=== PATIENT | female | born 1975 | race Caucasian/White ===

== ENCOUNTER → 2020-10-09 12:26 | Outpatient (CLI) | payer OTHER, SELFPAY ==
--- NOTE | ~2020-10-09 | MM_ITS ---
EXAMINATION: MM screening [facility] BI w viktor HISTORY: Screening TECHNIQUE: Craniocaudal and mediolateral oblique 3-D tomosynthesis images were obtained and synthetic 2-D images were generated. CAD analysis was submitted and interpreted. COMPARISON: 07/25/2019 BREAST PARENCHYMAL COMPOSITION: The breasts are heterogeneously dense, which may obscure small masses . FINDINGS: There is no evidence of suspicious mass, calcification, or architectural distortion to sugg est malignancy in either breast. There has been no suspicious interval change. IMPRESSION: 1. No mammographic evidence of malignancy. 2. Recommend routine screening mammography in one year. BI-RADS Category 1: Negative Reviewed, dictated and finalized at location D. 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
== END ==
PROVIDERS: PCP Emergency Medicine; Visit Provider Emergency Medicine
DX: Z12.31 Encounter for screening mammogram for malignant neoplasm of breast (principal)
CPT/HCPCS: 77063; 77067

== ENCOUNTER → 2021-01-18 03:29 | Outpatient (CLI) | payer OTHER, SELFPAY ==
[2021-01-18 19:46] LABS: SARS-CoV-2 RNA PCR Negative
== END ==
PROVIDERS: PCP Emergency Medicine; Visit Provider Internal Medicine Gastroenterology
DX: Z01.812 Encounter for preprocedural laboratory examination (principal); Z20.822 Contact with and (suspected) exposure to COVID-19
CPT/HCPCS: C9803; U0003; U0005

== ENCOUNTER 2021-01-22 01:18 | Day surgery (SDC) | payer OTHER, SELFPAY ==
[2021-01-08 16:13] VITALS: BMI 24.0
[2021-01-22 09:56] VITALS: BP 119/86; PULSE 110; RESP 18; TEMP 36.1; O2SAT 100
[2021-01-22] MEDS: LACTATED RINGERS 1,000 ML 150 ML IV CONT (10:13)
--- NOTE | 2021-01-22 10:36 | SUR.PREOP ---
DR MCPHERSON MADE AWARE PT'S HEARTRATE UPON ARRIVAL 110'S, HEARTRATE NOW 88. NO NEW ORDERS.
[2021-01-22 10:37] VITALS: PULSE 88
--- NOTE | 2021-01-22 10:46 | PM.HPGS ---
History of Present Illness History of Present Illness Consent: Risks, benefits, and alternatives have been discussed and questions answered. Patient agrees to proceed with procedure. Chief complaint: abd pain Narrative: Bienvenido Villarreal is a 45 year old female with a year of intermittent rlq pain and bloating, recently also noted loose stool. Imaging no major findings, never had scopes. Review of Systems Constitutional: Constitutional: Denies headache(s) and Denies weakness Eyes: Eyes: Denies blurry vision ENT: Reports Normal hearing present, Denies headache(s) and Denies neck pain Cardiovascular: Cardiovascular: Denies chest pain and Denies dyspnea Respiratory: Respiratory: Denies dyspnea Gastrointestinal: Gastrointestinal: Reports no additional gastrointestinal complaints Genitourinary: Genitourinary: Denies dysuria Musculoskeletal: Musculoskeletal: Denies neck pain Integumentary/Breasts: Skin/Breast: Denies dry skin Neurologic: Reports Normal hearing present, Denies headache(s) and Denies weakness Psychiatric: Psychiatric: Denies anxiety Endocrine: Endocrine: Denies change in body appearance Hematologic/Lymphatic: Hematologic/Lymphatic: Denies easy bleeding Allergic/Immunologic: Allergic/Immunologic: Denies urticaria PMFSH Past Medical History Medical History (Updated 01/22/21 @ 10:47 by Kieran Reeder MD) Bloating RLQ abdominal pain Social History Social History (Updated 10/25/20 @ 15:05 by Allyn Corcoran CMA) Smoking packs per day: 1 Smoking cigarettes per day: 20.0 Years smoked: 10 Smoking pack-years: 10.00 Smoking status: Former smoker Smoking end date: 08/23/08 Alcohol intake: current Alcohol use details: rarely Substance use: never Living arrangements: with family Gender identity (if verbalized by the patient): Female Spiritual care concerns: No Meds Home Medications and Allergies Home Medications Medication Instructions Recorded Confirmed Type No Home Medications 10/25/20 01/08/21 History Allergies Allergy/AdvReac Type Severity Reaction Status Date / Time No Known Allergies Allergy Mild Verified 01/22/21 09:55 Vital Signs Vital Signs - 24 hr 01/22/21 09:56 01/22/21 10:37 Temperature 97.0 F L Pulse Rate 110 H 88 Respiratory Rate 18 Blood Pressure 119/86 Pulse Oximetry 100 Exam Const: General: comfortable and no acute distress HENMT: General nose exam: Normal nares present Eyes: General: appearance normal, both eyes and all related structures Neck: Neck: no JVD Resp: Auscultation: clear to auscultation bilaterally Cardio: Rate: regular rate Rhythm: regular rhythm GI: Inspection: non-distended GI Palp: Yes Soft to palpation Skin: General skin exam: normal color Neuro: General: gait normal Speech: normal speech Extrem: General: normal to inspection Psych: Mental Status: mental status grossly normal Assessment and Plan Assessment and plan (1) Bloating: Code(s): R14.0 - Abdominal distension (gaseous) Status: Acute Assessment and Plan: egd with bx (2) RLQ abdominal pain: Code(s): R10.31 - Right lower quadrant pain Status: Acute Assessment and Plan: colonoscopy
--- NOTE | 2021-01-22 10:50 | P.PNAN_ITS ---
Anes - Initial Pre Proc Eval Procedure: Operation Date: 01/22/21 11:00 Proposed Procedures p Esophagogastroduodenoscopy & Colonoscopy - Kieran Reeder MD Date/Time: 01/22/21 10:50 Surgeon: Kieran Reeder MD Pre Op Diagnosis: abd pain Patient Data Age: 45 Gender: F Height: 5 ft 4 in Weight: 63.8 kg Last Vital Signs Temp 97.0 F L 01/22/21 09:56 Pulse 88 01/22/21 10:37 Resp 18 01/22/21 09:56 BP 119/86 01/22/21 09:56 Pulse Ox 100 01/22/21 09:56 Allergies Allergy/AdvReac Type Severity Reaction Status Date / Time No Known Allergies Allergy Mild Verified 01/22/21 09:55 Home Medications Medication Instructions Recorded Confirmed Type No Home Medications 10/25/20 01/08/21 History Patient hx anesthesia problems: none Family hx anesthesia problems: none [facility] Past Medical History Medical History (Updated 01/22/21 @ 10:47 by Kieran Reeder MD) Bloating RLQ abdominal pain Social History Social History (Updated 10/25/20 @ 15:05 by Allyn Corcoran CMA) Smoking packs per day: 1 Smoking cigarettes per day: 20.0 Years smoked: 10 Smoking pack-years: 10.00 Smoking status: Former smoker Smoking end date: 08/23/08 Alcohol intake: current Alcohol use details: rarely Substance use: never Living arrangements: with family Gender identity (if verbalized by the patient): Female Spiritual care concerns: No Anes - Eval Final PreProcedure Day of Procedure 01/22/21 10:50 Patient weight: normal Heart: regular rate and rhythm Lungs: clear to auscultation Airway: Mallampati scale class II Neurological: alert and oriented Last oral intake: >/= 8 hours ASA classification: II Emergent: no Anesthetic plan: proceed Anesthesia type and monitoring: general GIVS and standard monitoring Informed Consent: The patient's anesthetic plan and its attendant risks and benefits were discussed with the patient/family/POA. Questions were solicited and answers provided to the satisfaction of the patient/family/POA.
[2021-01-22] MEDS: BENZOCAINE (*SP) 60 ML SPRAY CAN (HURRICAINE) 1 SPRAY MUCOUS MEM (10:55)
[2021-01-22 11:23] VITALS: BP 102/58; PULSE 56; RESP 15; O2SAT 99
[2021-01-22 11:33] VITALS: BP 105/63; PULSE 72; RESP 17; O2SAT 99
[2021-01-22 11:40] VITALS: BP 122/88; PULSE 82; RESP 14; O2SAT 99
== END 2021-01-22 11:50 | disposition home or self-care (01) ==
PROVIDERS: PCP Emergency Medicine; Visit Provider Internal Medicine Gastroenterology
PROC: 0DJ08ZZ Inspection of Upper Intestinal Tract, Via Natural or Artificial Opening Endoscopic (ICD-10-PCS; CPT 43235; principal; 2021-01-22 11:00)
DX: K57.30 Diverticulosis of large intestine without perforation or abscess without bleeding (principal); K64.8 Other hemorrhoids; K44.9 Diaphragmatic hernia without obstruction or gangrene; K25.9 Gastric ulcer, unspecified as acute or chronic, without hemorrhage or perforation; K29.50 Unspecified chronic gastritis without bleeding; Z87.891 Personal history of nicotine dependence
CPT/HCPCS: 45378; 43239; 87081; 88305; C9803; J2704; J7120; U0003; U0005

== ENCOUNTER 2021-10-03 02:29 | Day surgery (SDC) | payer OTHER, SELFPAY ==
[2021-09-22 14:12] VITALS: BMI 23.8
--- NOTE | 2021-10-02 12:56 | P.PNAN_ITS ---
Anes - Initial Pre Proc Eval Procedure: Operation Date: 10/03/21 09:00 Proposed Procedures p Esophagogastroduodenoscopy - Kieran Reeder MD Date/Time: 10/02/21 12:56 Surgeon: Kieran Reeder MD Pre Op Diagnosis: gastric ulcer Patient Data Age: 45 Gender: F Height: 1.63 m Weight: 63 kg Allergies Allergy/AdvReac Type Severity Reaction Status Date / Time No Known Allergies Allergy Mild Verified 10/03/21 08:05 Home Medications Medication Instructions Recorded Confirmed Type omeprazole 40 mg PO DAILY 09/22/21 10/03/21 History Patient hx anesthesia problems: none Family hx anesthesia problems: none Results Review: All pre-operative results and documents have been reviewed as part of the pre-operative evaluation. [facility] Past Medical History Medical History (Updated 10/02/21 @ 12:57 by Evaristo Pizarro DO) Bloating History of gastric ulcer RLQ abdominal pain Surgical History Surgical History (Updated 10/02/21 @ 12:57 by Evaristo Pizarro DO) History of x2 History of tubal ligation Social History Social History (Updated 10/25/20 @ 15:05 by Allyn Corcoran CMA) Smoking packs per day: 1 Smoking cigarettes per day: 20.0 Years smoked: 10 Smoking pack-years: 10.00 Smoking status: Never smoker Smoking end date: 08/23/08 Alcohol intake: current Alcohol use details: 3 drinks monthly Substance use: never Living arrangements: with family Gender identity (if verbalized by the patient): Female Spiritual care concerns: No Anes - Eval Final PreProcedure Day of Procedure 10/02/21 12:56 Patient weight: normal Heart: regular rate and rhythm Lungs: clear to auscultation and normal air movement Airway: Mallampati scale class II Neurological: alert and oriented Last oral intake: >/= 8 hours ASA classification: II Emergent: no Anesthetic plan: proceed Anesthesia type and monitoring: general GIVS and standard monitoring Results Review: All pre-operative results and documents have been reviewed as part of the pre-operative evaluation. Informed Consent: The patient's anesthetic plan and its attendant risks and benefits were discussed with the patient/family/POA. Questions were solicited and answers provided to the satisfaction of the patient/family/POA.
[2021-10-03 08:07] VITALS: BP 131/81; PULSE 97; RESP 15; TEMP 36.7; O2SAT 100; BMI 25.4
[2021-10-03] MEDS: LACTATED RINGERS 1,000 ML 150 ML IV CONT (08:40)
--- NOTE | 2021-10-03 08:47 | PM.HPGS ---
History of Present Illness History of Present Illness Consent: Risks, benefits, and alternatives have been discussed and questions answered. Patient agrees to proceed with procedure. Chief complaint: gastric ulcer Narrative: Bienvenido Villarreal is a 45 year old female with gastric ulcer 01/2021 using ppi and feeling better Review of Systems Constitutional: Constitutional: Denies headache(s) and Denies weakness Eyes: Eyes: Denies blurry vision ENT: Reports Normal hearing present, Denies headache(s) and Denies neck pain Cardiovascular: Cardiovascular: Denies chest pain and Denies dyspnea Respiratory: Respiratory: Denies dyspnea Gastrointestinal: Gastrointestinal: Reports no additional gastrointestinal complaints Genitourinary: Genitourinary: Denies dysuria Musculoskeletal: Musculoskeletal: Denies neck pain Integumentary/Breasts: Skin/Breast: Denies dry skin Neurologic: Reports Normal hearing present, Denies headache(s) and Denies weakness Psychiatric: Psychiatric: Denies anxiety Endocrine: Endocrine: Denies change in body appearance Hematologic/Lymphatic: Hematologic/Lymphatic: Denies easy bleeding Allergic/Immunologic: Allergic/Immunologic: Denies urticaria PMFSH Past Medical History Medical History (Updated 10/03/21 @ 08:48 by Kieran Reeder MD) Bloating History of gastric ulcer RLQ abdominal pain Surgical History Surgical History (Updated 10/02/21 @ 12:57 by Evaristo Pizarro DO) History of x2 History of tubal ligation Social History Social History (Updated 10/25/20 @ 15:05 by Allyn Corcoran CMA) Smoking packs per day: 1 Smoking cigarettes per day: 20.0 Years smoked: 10 Smoking pack-years: 10.00 Smoking status: Never smoker Smoking end date: 08/23/08 Alcohol intake: current Alcohol use details: 3 drinks monthly Substance use: never Living arrangements: with family Gender identity (if verbalized by the patient): Female Spiritual care concerns: No Meds Home Medications and Allergies Home Medications Medication Instructions Recorded Confirmed Type omeprazole 40 mg PO DAILY 09/22/21 10/03/21 History Allergies Allergy/AdvReac Type Severity Reaction Status Date / Time No Known Allergies Allergy Mild Verified 10/03/21 08:05 Vital Signs Vital Signs - 24 hr 10/03/21 08:07 Temperature 98.1 F Pulse Rate 97 Respiratory Rate 15 Blood Pressure 131/81 Pulse Oximetry 100 Exam Const: General: comfortable and no acute distress HENMT: General nose exam: Normal nares present Eyes: General: appearance normal, both eyes and all related structures Neck: Neck: no JVD Resp: Auscultation: clear to auscultation bilaterally Cardio: Rate: regular rate Rhythm: regular rhythm GI: Inspection: non-distended GI Palp: Yes Soft to palpation Skin: General skin exam: normal color Neuro: General: gait normal Speech: normal speech Extrem: General: normal to inspection Psych: Mental Status: mental status grossly normal Assessment and Plan Assessment and plan (1) History of gastric ulcer: Code(s): Z87.11 - Personal history of peptic ulcer disease Status: Inactive Assessment and Plan: on ppi, EGD to assess for healing
[2021-10-03 09:01] VITALS: BP 102/68; PULSE 80; RESP 18; O2SAT 99
[2021-10-03 09:11] VITALS: BP 101/65; PULSE 78; RESP 20; O2SAT 99
[2021-10-03 09:21] VITALS: BP 112/64; PULSE 76; RESP 18; O2SAT 99
== END 2021-10-03 09:33 | disposition home or self-care (01) ==
PROVIDERS: PCP Emergency Medicine; Visit Provider Internal Medicine Gastroenterology
PROC: 0DJ08ZZ Inspection of Upper Intestinal Tract, Via Natural or Artificial Opening Endoscopic (ICD-10-PCS; CPT 43235; principal; 2021-10-03 09:00)
DX: K25.9 Gastric ulcer, unspecified as acute or chronic, without hemorrhage or perforation (principal)
CPT/HCPCS: 43235; J2001; J2704; J7120

== ENCOUNTER → 2022-05-26 13:54 | Outpatient (CLI) | payer OTHER, SELFPAY ==
--- NOTE | ~2022-05-26 | MM_ITS ---
EXAMINATION: MM screening [facility] BI w viktor HISTORY: Screening mammogram TECHNIQUE: Craniocaudal and mediolateral oblique 3-D tomosynthesis images were obtained and synthetic 2-D images were generated. CAD analysis was submitted and interpreted. COMPARISON: 10/09/2020, 07/25/2019 BREAST PARENCHYMAL COMPOSITION: The breasts are heterogeneously dense, which may obscure small masses . FINDINGS: No suspicious mass, calcification, or architectural distortion are identified in either maikol ast to suggest malignancy. There has been no suspicious interval change. IMPRESSION: 1. No mammographic evidence of malignancy. 2. Recommend routine screening mammography in one year. BI-RADS Category 1: Negative Reviewed, dictated and finalized at location A.
== END ==
PROVIDERS: PCP Emergency Medicine; Visit Provider Emergency Medicine
DX: Z12.31 Encounter for screening mammogram for malignant neoplasm of breast (principal)
CPT/HCPCS: 77063; 77067

== ENCOUNTER 2023-06-18 00:18 | Day surgery (SDC) | payer OTHER, SELFPAY ==
[2023-06-08 13:59] VITALS: BMI 25.9
[2023-06-18 09:02] VITALS: BP 121/85; PULSE 116; RESP 16; TEMP 36.4; O2SAT 100
[2023-06-18] MEDS: LACTATED RINGERS 1,000 ML 150 ML IV CONT (09:13)
--- NOTE | 2023-06-18 09:34 | WPDANESEPPF ---
Anes - Initial Pre Proc Eval Procedure: Operation Date: 06/18/23 10:15 Proposed Procedures p Esophagogastroduodenoscopy & Colonoscopy - Kieran Reeder MD Date/Time: 06/18/23 09:34 Surgeon: Kieran Reeder MD Pre Op Diagnosis: Iron Deficiency Anemia Patient Data Age: 47 Gender: F Height: 1.63 m Weight: 68.4 kg Last Vital Signs Temp 97.6 F 06/18/23 09:02 Pulse 116 H 06/18/23 09:02 Resp 16 06/18/23 09:02 BP 121/85 06/18/23 09:02 Pulse Ox 100 06/18/23 09:02 O2 Del Method Room Air 06/18/23 09:02 Allergies Allergy/AdvReac Type Severity Reaction Status Date / Time No Known Allergies Allergy Mild Verified 06/18/23 09:01 Home Medications Medication Instructions Recorded Confirmed Type No Home Medications 05/04/23 06/18/23 History Patient hx anesthesia problems: none Family hx anesthesia problems: none Results Review: All pre-operative results and documents have been reviewed as part of the pre-operative evaluation. [facility] Past Medical History Medical History Bloating History of gastric ulcer RLQ abdominal pain Surgical History Surgical History History of x2 History of tubal ligation Social History Social History Smoking packs per day: 1 Smoking cigarettes per day: 20.0 Years smoked: 10 Smoking pack-years: 10.00 Smoking status: Never smoker Smoking end date: 08/23/08 Alcohol intake: current Alcohol use details: 3 drinks monthly Substance use: never Substance use type: does not use Living arrangements: other Additional living arrangements comments: with sp Occupation/Education: occupation Gender identity (if verbalized by the patient): Female Spiritual care concerns: No Anes - Eval Final PreProcedure Day of Procedure 06/18/23 09:34 Patient weight: normal Heart: regular rate and rhythm Lungs: clear to auscultation Airway: Mallampati scale class II Neurological: alert and oriented Last oral intake: >/= 8 hours ASA classification: II Emergent: no Anesthetic plan: proceed Anesthesia type and monitoring: general GIVS and standard monitoring Results Review: All pre-operative results and documents have been reviewed as part of the pre-operative evaluation. Informed Consent: The patient's anesthetic plan and its attendant risks and benefits were discussed with the patient/family/POA. Questions were solicited and answers provided to the satisfaction of the patient/family/POA.
--- NOTE | 2023-06-18 09:37 | PM.HPGS ---
History of Present Illness History of Present Illness Consent: Risks, benefits, and alternatives have been discussed and questions answered. Patient agrees to proceed with procedure. Chief complaint: Iron Deficiency Anemia Narrative: Bienvenido Villarreal is a 47 year old female with recent diagnosis of WILLIAM, colonoscopy 2020 no major findings, egd had ulcer but repeat EGD after ppi was normal, she is not using ppi now. Denies overt gib. She has seen hematology and scheduled for IV iron infusion. Review of Systems Constitutional: Constitutional: Denies headache(s) and Denies weakness Eyes: Eyes: Denies blurry vision ENT: Reports Normal hearing present, Denies headache(s) and Denies neck pain Cardiovascular: Cardiovascular: Denies chest pain and Denies dyspnea Respiratory: Respiratory: Denies dyspnea Gastrointestinal: Gastrointestinal: Reports no additional gastrointestinal complaints Genitourinary: Genitourinary: Denies dysuria Musculoskeletal: Musculoskeletal: Denies neck pain Integumentary/Breasts: Skin/Breast: Denies dry skin Neurologic: Reports Normal hearing present, Denies headache(s) and Denies weakness Psychiatric: Psychiatric: Denies anxiety Endocrine: Endocrine: Denies change in body appearance Hematologic/Lymphatic: Hematologic/Lymphatic: Denies easy bleeding Allergic/Immunologic: Allergic/Immunologic: Denies urticaria PMFSH Past Medical History Medical History (Updated 06/18/23 @ 09:38 by Kieran Reeder MD) Bloating History of gastric ulcer Iron deficiency anemia RLQ abdominal pain Surgical History Surgical History History of x2 History of tubal ligation Social History Social History Smoking packs per day: 1 Smoking cigarettes per day: 20.0 Years smoked: 10 Smoking pack-years: 10.00 Smoking status: Never smoker Smoking end date: 08/23/08 Alcohol intake: current Alcohol use details: 3 drinks monthly Substance use: never Substance use type: does not use Living arrangements: other Additional living arrangements comments: with sp Occupation/Education: occupation Gender identity (if verbalized by the patient): Female Spiritual care concerns: No Meds Home Medications and Allergies Home Medications Medication Instructions Recorded Confirmed Type No Home Medications 05/04/23 06/18/23 History Allergies Allergy/AdvReac Type Severity Reaction Status Date / Time No Known Allergies Allergy Mild Verified 06/18/23 09:01 Vital Signs Vital Signs - 24 hr 06/18/23 09:02 Temperature 97.6 F Pulse Rate 116 H Respiratory Rate 16 Blood Pressure 121/85 Pulse Oximetry 100 Oxygen Delivery Room Air Exam Const: General: comfortable and no acute distress HENMT: Face/Nose/Sinus: Normal nares present Eyes: General: appearance normal, both eyes and all related structures Neck: Neck: no JVD Resp: Auscultation: clear to auscultation bilaterally Cardio: Rate: regular rate Rhythm: regular rhythm GI: Inspection: non-distended GI Palp: Yes Soft to palpation Skin: General skin exam: normal color Neuro: General: gait normal Speech: normal speech Extrem: General: normal to inspection Psych: Mental Status: mental status grossly normal Assessment and Plan Assessment and plan (1) Iron deficiency anemia: Code(s): D50.9 - Iron deficiency anemia, unspecified Status: Acute Assessment and Plan: egd and colonoscopy no overt gib she is seeing hematology
--- NOTE | 2023-06-18 10:05 | SUR.OPER ---
EGD started at 0946 and ended at 0950. Colonoscopy started at 0953 and ended at 1003.
[2023-06-18 10:06] VITALS: BP 104/67; PULSE 103; RESP 23; O2SAT 100
[2023-06-18 10:16] VITALS: BP 108/67; PULSE 90; RESP 27; O2SAT 96
[2023-06-18 10:26] VITALS: BP 114/74; PULSE 85; RESP 17; O2SAT 99
== END 2023-06-18 10:32 | disposition home or self-care (01) ==
PROVIDERS: PCP Emergency Medicine; Visit Provider Internal Medicine Gastroenterology
PROC: 0DJ08ZZ Inspection of Upper Intestinal Tract, Via Natural or Artificial Opening Endoscopic (ICD-10-PCS; CPT 43235; principal; 2023-06-18 10:15)
DX: D50.9 Iron deficiency anemia, unspecified (principal); K57.30 Diverticulosis of large intestine without perforation or abscess without bleeding; K64.8 Other hemorrhoids; K29.70 Gastritis, unspecified, without bleeding; Z87.891 Personal history of nicotine dependence
CPT/HCPCS: 45378; 43239; 88305; J2704; J7120

== ENCOUNTER 2023-07-06 09:14 | Outpatient (CLI) | payer OTHER, SELFPAY ==
--- NOTE | ~2023-07-06 | US_ITS ---
Pelvic ultrasound. Clinical History: Abnormal uterine bleeding Technique: Realtime transabdominal and transvaginal scanning of the pelvis was performed. Color flow Doppler and Doppler spectral analysis were performed. Findings: The uterus is anteverted, and measures 15.6 x 6.1 x 11.3 cm. The endometrial stripe has a thickness of 6 mm. Probable somewhat ill-defined fibroid measuring up to approximately 7.7 cm in diam eter.. The right ovary measures 2.8 x 2.5 x 2.9 cm. No significant right ovarian or adnexal mass is seen. The left ovary measures 2.8 x 2.1 x 2.9 cm. No significant left ovarian or adnexal mass is seen. There is no evidence of free fluid in the cul de sac. Impression: 7.7 cm somewhat ill-defined fibroid. Reviewed, dictated and finalized at [facility]. NG ROLL OPERATOR Impression: 7.7 cm somewhat ill-defined fibroid.
--- NOTE | ~2023-07-06 | US_ITS ---
EXAMINATION: US thyroid DATE: 07/06/2023 09:55 INDICATION: Nontoxic single thyroid nodule. TECHNIQUE: Multiple ultrasound images of the thyroid were obtained. COMPARISON: None. FINDINGS: The right thyroid lobe measures 4.9 x 1.8 x 1.8 cm. The left thyroid lobe measures 5.8 x 1.7 x 1.8 c m. In the right thyroid lobe, there is a 2.0 cm solid, hypoechoic, wider than tall nodule with irreg ular margin without echogenic foci (TI-RADS TR4). In the right thyroid lobe, there is a 3 mm nodule. In the left thyroid lobe, there is a 5 mm solid, hypoechoic, wider than tall nodule with ill-defined margin without echogenic foci (TR4). IMPRESSION: 1. Thyroid nodules. Ultrasound-guided fine needle aspiration of the 2.0 cm right thyroid nodule is re commended. Reviewed, dictated and finalized at location A. ET MAKING MACHINE OPERATOR IMPRESSION: 1. Thyroid nodules. Ultrasound-guided fine needle aspiration of the 2.0 cm righ t thyroid nodule is recommended.
== END 2023-07-06 09:15 ==
PROVIDERS: PCP Obstetrics & Gynecology; Visit Provider Obstetrics & Gynecology
DX: E04.1 Nontoxic single thyroid nodule (principal); N93.9 Abnormal uterine and vaginal bleeding, unspecified; E04.2 Nontoxic multinodular goiter; D25.9 Leiomyoma of uterus, unspecified
CPT/HCPCS: 76536; 76830; 76856

== ENCOUNTER 2023-07-30 12:30 | Outpatient (CLI) | payer OTHER, SELFPAY ==
--- NOTE | ~2023-07-30 | US_ITS ---
EXAMINATION: US FNA w image guidance DATE: 07/30/2023 13:46 INDICATION: Nontoxic single thyroid nodule TECHNIQUE: A time-out was performed to verify the patient's name, date of , and procedure to be performed . The procedure and its benefits and risks were discussed with the patient. Risks specifically discus sed included bleeding and infection. The patient understood the risks and agreed to proceed. The neck was prepped and draped in the usual sterile manner. 2 mL 1% lidocaine was used for local anesthesia . 6 passes were made with a 25G needle into the lesion. Appropriate needle location was documented with continuous sonographic guidance. A sterile bandage was applied. There were no immediate compli cations. FINDINGS: Grayscale ultrasound images demonstrate biopsy needles advanced into a 1.9 cm TI RADS 4 right thyroid nodule. IMPRESSION: 1. Successful ultrasound-guided fine needle aspiration of a 1.9 cm TI RADS 4 right thyroid nodule. Reviewed, dictated and finalized at location A. TILE FLOOR LAYER IMPRESSION: 1. Successful ultrasound-guided fine needle aspiration of a 1.9 cm TI RADS 4 r ight thyroid nodule.
== END 2023-07-30 12:31 | disposition home or self-care (01) ==
PROVIDERS: PCP Emergency Medicine; Visit Provider Obstetrics & Gynecology
DX: E04.1 Nontoxic single thyroid nodule (principal)
CPT/HCPCS: 10005; 88172; 88173; 88305

== ENCOUNTER 2023-08-02 00:28 | Day surgery (SDC) | payer OTHER, SELFPAY ==
[2023-07-29 11:05] VITALS: BMI 26.6
--- NOTE | 2023-07-29 11:26 | PC.NURSE ---
Report to the Outpatient Waiting Room, entrance under the green pavilion located off [facility], at time _7am on date 08/02/23. Planned Procedure Time: 9am Time changes happen often and if your time is changed the preop area will call you the afternoon before. - You and your visitor will be asked to self-screen and do not enter if you have any COVID symptoms. - A mask is optional within the hospital at this time. Patients may have clear liquids (water, carbonated beverages, clear teas, apple juice) until 3 hours prior to surgery with a maximum of 20 ounces. - No food from midnight until time of surgery Take the following medications with a SIP of water the morning of surgery: ____nothing to take DO NOT STOP ANY OF YOUR OTHER PRESCRIPTION MEDICATIONS PRIOR TO SURGERY ?EXCEPT THE FOLLOWING Medications to discontinue per physician Iron Date to take last dose____07/30/23 Please no make-up, nail guamanian, hairspray, perfume, deodorant, or body powder the day of surgery. No jewelry (including any body piercings) or valuables the day of surgery, leave them at home. Please take a shower or bath the night before, or the morning of, surgery with an antibacterial soap. Wear comfortable, loose fitting clothing. Children are encouraged to wear pajamas. - Jewelry must be removed prior to entering the operating room. Rings and piercings that are not removed may be cut off. - The hospital will not accept responsibility for valuables. - Please leave all valuables, including medications, at home the day of surgery. If you are going home after surgery, a licensed driver operator must drive you home. - NO public transportation without another adult if you receive anesthesia. - We recommend that an adult stay with you for 24 hours following discharge. - We also recommend that you do not drive, make important decision, drink alcoholic beverages, or take any drugs that were not prescribed by your health care provider for at least 24 hours after your discharge time. Follow any additional instructions given to you from your surgeon. If you or anyone in your household have experienced Covid symptoms in the past week, please notify your surgeon or the nurse liaison at the phone number below for possible testing. Telephone instructions given to patient Bienvenido and asked if any additional questions and then verbalized understanding. Patient advised to call surgeon office or pre surgery nurse liaison [phone] if any additional questions.
--- NOTE | 2023-08-01 19:58 | PM.IMHP ---
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 She has a h/o x2 and had a tubal with her second. She reports she has not seen amusement or recreation card checker in over 10 years. She was not feeling well; went to her PCP and was found to be anemic with an iron level of 4. She has since seen heme and had 4 IV iron infusions. She has had workup with EGD/colonoscopies (normal) and it has been determined that it's her periods causing the iron def anemia. She is having a cycle monthly, but over the last year they have progressively gotten worse and heavier. She reports that they last about 9 days and are very heavy with having to change her tampon almost every hour the first day with quarter sized clots. She has a lot of pressure and back pains the week before her cycle. She is having hot flashes and night sweats. Sexually active w/o issue. SHIRT FINISHER US was ordered and showed a 7.7cm fibroid. She was also found to have a 2cm TR-4 thyroid nodule, which was biopsied on 07/30/23-- pathology is still pending. Review of Systems Constitutional: Constitutional: Denies chills, Denies fever(s) and Denies headache(s) Eyes: Eyes: Denies change in vision ENT: Denies dizziness and Denies headache(s) Cardiovascular: Cardiovascular: Denies chest pain and Denies dyspnea Respiratory: Respiratory: Denies cough and Denies dyspnea Gastrointestinal: Gastrointestinal: Denies abdominal pain and Denies change in stool character Genitourinary: Genitourinary: Denies abnormal menses, Denies pelvic pain, Denies vaginal discharge, Denies vaginal odor and Denies vaginal pruritus Neurologic: Denies dizziness and Denies headache(s) Psychiatric: Psychiatric: Denies anxiety and Denies depression [facility] Past Medical History Medical History Bloating History of gastric ulcer Iron deficiency anemia RLQ abdominal pain Surgical History Surgical History History of x2 History of tubal ligation Family History Family History (Updated 07/01/23 @ 08:28 by Laurence Cowan MA) Other Diabetes mellitus Hypertension Social History Social History (Updated 07/01/23 @ 08:29 by Laurence Cowan MA) Smoking packs per day: 1 Smoking cigarettes per day: 20.0 Years smoked: 10 Smoking pack-years: 10.00 Smoking status: Light tobacco smoker Smoking end date: 07/29/08 Alcohol intake: current Alcohol use details: 3 drinks monthly Substance use: never Substance use type: does not use Lack of Transportation: No Lack of Food: Never True Current Housing: I Have Housing Concerned About Future Housing: No Difficulty Paying Gas/Electric Bills: No Difficulty Paying for Meds: No Currently Unemployed: No Education: High School Diploma/GED Difficulty w/ Childcare or Family Care: No Living arrangements: with family Occupation/Education: occupation Gender identity (if verbalized by the patient): Female Sexual Orientation (if Verbalized by the Patient): Straight or Heterosexual Spiritual care concerns: No Meds Home Medications and Allergies Home Medications Medication Instructions Recorded Confirmed Type ferrous sulfate 325 mg (65 mg 325 mg PO DAILY 07/01/23 07/29/23 History iron) tablet Allergies Allergy/AdvReac Type Severity Reaction Status Date / Time No Known Allergies Allergy Mild Verified 07/29/23 11:03 Exam Const: General: cooperative, healthy appearing, comfortable and no acute distress Orientation/consciousness: patient oriented x3 Resp: Effort & Inspection: normal respiratory effort Cardio: Rate: regular rate GI: Inspection: normal to inspection GI Palp: No abdominal tenderness and Yes Soft to palpation : Other: deferred to OR Skin: General skin exam: nor
--- NOTE | 2023-08-02 07:12 | WPDHPUPDATE1 ---
History and Physical Update Update Date/Time: 08/02/23 07:12 History and Physical has been reviewed, including an updated exam of the patient. There are NO changes in the patient's condition. Risks, benefits, and alternatives have been discussed and questions answered. Patient agrees to proceed with hysteroscopy with D&C.
[2023-08-02] MEDS: ACETAMINOPHEN 500 MG TABLET 1000 MG PO (07:24)
[2023-08-02] MEDS: LACTATED RINGERS 1,000 ML 30 ML IV CONT (07:24)
[2023-08-02 07:30] VITALS: BP 125/74; PULSE 93; RESP 16; TEMP 36.6; O2SAT 98; BMI 26.8
[2023-08-02 07:40] LABS: Hematocrit 41.1 % (37.0-47.0); Hemoglobin 13.8 g/dL (12.0-15.0)
--- NOTE | 2023-08-02 09:06 | WPDANESEPPF ---
Anes - Initial Pre Proc Eval Procedure: Operation Date: 08/02/23 09:00 Proposed Procedures p Hysteroscopy, Dilation and Curettage - Kaylie Garvin MD Date/Time: 08/02/23 09:06 Surgeon: Kaylie Garvin MD Pre Op Diagnosis: abn uterine bleeding Patient Data Age: 47 Gender: F Height: 1.63 m Weight: 70.9 kg Last Vital Signs Temp 97.8 F 08/02/23 07:30 Pulse 93 08/02/23 07:30 Resp 16 08/02/23 07:30 BP 125/74 08/02/23 07:30 Pulse Ox 98 08/02/23 07:30 O2 Del Method Room Air 08/02/23 07:30 Allergies Allergy/AdvReac Type Severity Reaction Status Date / Time No Known Allergies Allergy Mild Verified 08/02/23 07:02 Home Medications Medication Instructions Recorded Confirmed Type ferrous sulfate 325 mg (65 mg 325 mg PO DAILY 07/01/23 08/02/23 History iron) tablet acetaminophen 500 mg tablet 1,000 mg PO TID #60 tabs 08/02/23 Rx cetirizine 5 mg tablet 5 mg PO DAILY 08/02/23 08/02/23 History ibuprofen 800 mg tablet 800 mg PO TID #30 tabs 08/02/23 Rx Laboratory Tests 08/02/23 07:23 Hgb 13.8 g/dL (12.0-15.0) Hct 41.1 % (37.0-47.0) Patient hx anesthesia problems: none Family hx anesthesia problems: none Results Review: All pre-operative results and documents have been reviewed as part of the pre-operative evaluation. [facility] Past Medical History Medical History Bloating History of gastric ulcer Iron deficiency anemia RLQ abdominal pain Surgical History Surgical History History of x2 History of tubal ligation Family History Family History (Updated 07/01/23 @ 08:28 by Laurence Cowan MA) Other Diabetes mellitus Hypertension Social History Social History (Updated 07/01/23 @ 08:29 by Laurence Cowan MA) Smoking packs per day: 1 Smoking cigarettes per day: 20.0 Years smoked: 10 Smoking pack-years: 10.00 Smoking status: Light tobacco smoker Smoking end date: 07/29/08 Alcohol intake: current Alcohol use details: 3 drinks monthly Substance use: never Substance use type: does not use Lack of Transportation: No Lack of Food: Never True Current Housing: I Have Housing Concerned About Future Housing: No Difficulty Paying Gas/Electric Bills: No Difficulty Paying for Meds: No Currently Unemployed: No Education: High School Diploma/GED Difficulty w/ Childcare or Family Care: No Living arrangements: with family Occupation/Education: occupation Gender identity (if verbalized by the patient): Female Sexual Orientation (if Verbalized by the Patient): Straight or Heterosexual Spiritual care concerns: No Anes - Eval Final PreProcedure Day of Procedure 08/02/23 09:06 Patient weight: normal Heart: regular rate and rhythm Lungs: clear to auscultation Airway: Mallampati scale class II Neurological: alert and oriented Last oral intake: >/= 8 hours ASA classification: II Emergent: no Anesthetic plan: proceed Anesthesia type and monitoring: general GIVS and standard monitoring Results Review: All pre-operative results and documents have been reviewed as part of the pre-operative evaluation. Informed Consent: The patient's anesthetic plan and its attendant risks and benefits were discussed with the patient/family/POA. Questions were solicited and answers provided to the satisfaction of the patient/family/POA.
--- NOTE | 2023-08-02 09:46 | P.OP_ITS ---
Procedure Note - Detailed Date of Procedure 08/02/23 Pre-op Diagnosis abn uterine bleeding Post-op Diagnosis Same Procedure Performed Hysteroscopy with D&C Surgeon Kaylie Garvin MD Anesthesia MAC Findings Uterus sounded to 15cm; cervix found to be very elongated. Fibroid not visualized in the cavity; on palpation is left fundal/lateral. Normal cervix. Bilateral tubal ostia visualized. Shaver used to obtain full endometrial biopsy due to elongated cervix. Good hemostasis at end of case. Fluid deficit: 50cc. Description of Procedure Bienvenido was taken to the operating room where she was placed under sedation without complications. She was then prepped and draped in the usual sterile fashion in the dorsal lithotomy position with her legs in low Carlo stirrups. A time-out was performed and no perioperative antibiotics were indicated. A good exam under anesthesia was performed; ~8cm fibroid is arising from the left fundal, slightly lateral side of the uterus, decently mobile but wide (will plan for LIZ). A bivalve speculum was placed within the vagina where the cervix was easily identified. The anterior lip of the cervix was grasped with a single- tooth tenaculum and the uterus was sounded. The cervix was then serially dilated to allow for the hysteroscope. The hysteroscope was advanced into the uterine cavity with the above findings noted. A curettage was then performed but due to the elongated cervix, I was unable to reach the fundus and a good uterine cry was not felt. The hysteroscope was once again advanced into the uterine cavity and the small Aveta tissue shaver was used to fully obtain an endometrial sample from all areas of the uterus. Good hemostasis was noted. All instruments were removed from the vagina. Sponge, lap, instrument, and needle counts were correct at the end of the procedure. Patient was awoken from anesthesia and taken to recovery with plans of same-day discharge home. Estimated Blood Loss 10 IV Fluids 900 (Fluid deficit: 50cc) Drains No Packing No Pathology Yes (endometrial curetting's and shavings) Complications No immediate complications Condition Stable Disposition Same day [facility] Billing Surgery - Charge Forward: Surgery Billing
[2023-08-02 09:47] VITALS: BP 115/79; PULSE 91; RESP 14; O2SAT 100
[2023-08-02 10:15] VITALS: BP 114/73; PULSE 75; RESP 12; O2SAT 96
[2023-08-02 10:45] VITALS: BP 107/77; PULSE 77; RESP 12
== END 2023-08-02 10:55 | disposition home or self-care (01) ==
PROVIDERS: Anesthesiology; PCP Emergency Medicine; Visit Provider Obstetrics & Gynecology
PROC: 0U5B8ZZ Destruction of Endometrium, Via Natural or Artificial Opening Endoscopic (ICD-10-PCS; CPT 58563; principal; 2023-08-02 09:00)
DX: N92.0 Excessive and frequent menstruation with regular cycle (principal); D50.9 Iron deficiency anemia, unspecified; F17.210 Nicotine dependence, cigarettes, uncomplicated
CPT/HCPCS: 58558; 36415; 85014; 85018; 88305; A9270; J2250; J2405; J2704; J3010; J7120

== ENCOUNTER 2023-09-21 07:50 | Outpatient (CLI) | payer OTHER, SELFPAY | END 2023-09-21 07:51 | disposition home or self-care (01) | LOC: ANHSURGERY 07:53 | PROVIDERS: PCP Emergency Medicine; Visit Provider Obstetrics & Gynecology | DX: D21.9 Benign neoplasm of connective and other soft tissue, unspecified (principal) | CPT/HCPCS: 36415; 86850; 86900; 86901 ==

== ENCOUNTER 2023-09-27 11:58 | Inpatient (IN) | payer OTHER, SELFPAY ==
[2023-09-14 14:34] VITALS: BMI 27.5
--- NOTE | 2023-09-14 14:36 | PC.NURSE ---
Report to the Outpatient Waiting Room, entrance under the green pavilion located off [facility], at time _0600_ on date _[id number]_. Planned Procedure Time: _0730_. Time changes happen often and if your time is changed the preop area will call you the afternoon before. - You and your visitor will be asked to self-screen and do not enter if you have any COVID symptoms. - A mask is optional within the hospital at this time. Patients may have clear liquids (water, carbonated beverages, clear teas, apple juice) until 3 hours prior to surgery with a maximum of 20 ounces. - No food from midnight until time of surgery - Infants may have breast milk until 4 hours before surgery, infant formula 6 hours prior to surgery. - Children will be allowed to drink immediately following surgery. If applicable, please bring a bottle or sippy cup to assist with drinking. Juice, water, soda, and popsicles are readily available. For infants on formula, please bring formula the day of surgery. Pacifiers are allowed. Take the following medications with a SIP of water the morning of surgery: None DO NOT STOP ANY OF YOUR OTHER PRESCRIPTION MEDICATIONS PRIOR TO SURGERY ?EXCEPT THE FOLLOWING Medications to discontinue per physician Ferrous sulfate Date to take last [id number] Please no make-up, nail saudi arabian, hairspray, perfume, deodorant, or body powder the day of surgery. No jewelry (including any body piercings) or valuables the day of surgery, leave them at home. Please take a shower or bath the night before, or the morning of, surgery with an antibacterial soap. Wear comfortable, loose fitting clothing. - Jewelry must be removed prior to entering the operating room. Rings and piercings that are not removed may be cut off. - The hospital will not accept responsibility for valuables. - Please leave all valuables, including medications, at home the day of surgery. If you are going home after surgery, a licensed local truck driver must drive you home. - NO public transportation without another adult if you receive anesthesia. - We recommend that an adult stay with you for 24 hours following discharge. - We also recommend that you do not drive, make important decision, drink alcoholic beverages, or take any drugs that were not prescribed by your health care provider for at least 24 hours after your discharge time. Follow any additional instructions given to you from your surgeon. If you or anyone in your household have experienced Covid symptoms in the past week, please notify your surgeon or the nurse liaison at the phone number below for possible testing. Telephone instructions given to _Bienvenido__and asked if any additional questions and then verbalized understanding. Patient advised to call surgeon office or pre surgery nurse liaison [phone] if any additional questions.
--- NOTE | 2023-09-26 20:23 | PM.IMHP ---
H&P: HPI History of Present Illness Date/Time: 09/26/23 20:23 Chief Complaint: AUB/ pelvic pain Narrative: Bienvenido is a 47yo P2002, who presents for scheduled surgery. She is s/p HSC/D&C for AUB on 08/02/23; benign endometrium. 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 She has a h/o x2 and had a tubal with her second. She reports she has not seen industrial machinery mechanic in over 10 years. She was not feeling well; went to her PCP and was found to be anemic with an iron level of 4. She has since seen heme and had 4 IV iron infusions. She has had workup with EGD/colonoscopies (normal) and it has been determined that it's her periods causing the iron def anemia. She is having a cycle monthly, but over the last year they have progressively gotten worse and heavier. She reports that they last about 9 days and are very heavy with having to change her tampon almost every hour the first day with quarter sized clots. She has a lot of pressure and back pains the week before her cycle (also feels again). She is having hot flashes and night sweats. Sexually active w/o issue. 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 Review of Systems Constitutional: Constitutional: Denies chills, Denies fever(s) and Denies headache(s) Eyes: Eyes: Denies change in vision ENT: Denies dizziness and Denies headache(s) Cardiovascular: Cardiovascular: Denies chest pain and Denies dyspnea Respiratory: Respiratory: Denies cough and Denies dyspnea Gastrointestinal: Gastrointestinal: Denies abdominal pain and Denies change in stool character Genitourinary: Genitourinary: Reports abnormal menses, Reports menorrhagia, Reports pelvic pain, Denies vaginal discharge, Denies vaginal odor and Denies vaginal pruritus Neurologic: Denies dizziness and Denies headache(s) Psychiatric: Psychiatric: Denies anxiety and Denies depression [facility] Past Medical History Medical History Bloating History of gastric ulcer Iron deficiency anemia RLQ abdominal pain Surgical History Surgical History History of x2 History of gynecologic surgery 08/10/2023 - Hscope D&C History of tubal ligation Family History Family History Other Diabetes mellitus Hypertension Social History Social History Smoking packs per day: 1 Smoking cigarettes per day: 20.0 Years smoked: 10 Smoking pack-years: 10.00 Smoking status: Light tobacco smoker Tobacco type: cigarettes Smoking end date: 09/14/03 Alcohol intake: current Alcohol use details: 3 drinks monthly Substance use: never Substance use type: does not use Lack of Transportation: No Lack of Food: Never True Current Housing: I Have Housing Concerned About Future Housing: No Difficulty Paying Gas/Electric Bills: No Difficulty Paying for Meds: No Currently Unemployed: No Education: High School Diploma/GED Difficulty w/ Childcare or Family Care: No Living arrangements: with family Occupation/Education: occupation Gender identity (if verbalized by the patient): Female Sexual Orientation (if Verbalized by the Patient): Straight or Heterosexual Spiritual care concerns: No Meds Home Medications and Allergies Home Medications Medication Instructions Recorded Confirmed Type ferrous sulfate 325 mg (65 mg 325 mg PO DAILY 07/01/23 09/14/23 History iron) tablet cetirizine 5 mg tablet 5 mg PO DAILY 08/02/23 09/14/23 History Allergies Allergy/AdvReac Type Severity Reaction Status Date / Time No Known Allergies Allergy Mild Verified 09/14/23 14:29 Exam Const: General: cooperative, healthy appearing, comfortable and no acute distress Orientation/consciousness: augustine
[2023-09-27] VITALS (12 sets, daily range): BP systolic 115–142; BP diastolic 66–90; PULSE 85–120; RESP 12–18; TEMP 35.9–36.9; O2SAT 94–100
--- NOTE | 2023-09-27 06:39 | P.PNAN_ITS ---
Anes - Initial Pre Proc Eval Procedure: Operation Date: 09/27/23 07:30 Proposed Procedures p Total Abdominal Hysterectomy With Bilateral Salpingectomy - Kaylie Garvin MD Date/Time: 09/27/23 06:39 Surgeon: Kaylie Garvin MD Pre Op Diagnosis: uterine fibroids Patient Data Age: 47 Gender: F Height: 1.63 m Weight: 72.7 kg Allergies Allergy/AdvReac Type Severity Reaction Status Date / Time No Known Allergies Allergy Mild Verified 09/14/23 14:29 Home Medications Medication Instructions Recorded Confirmed Type ferrous sulfate 325 mg (65 mg 325 mg PO DAILY 07/01/23 09/14/23 History iron) tablet cetirizine 5 mg tablet 5 mg PO DAILY 08/02/23 09/14/23 History Patient hx anesthesia problems: none Family hx anesthesia problems: none Results Review: All pre-operative results and documents have been reviewed as part of the pre- operative evaluation. [facility] Past Medical History Medical History Bloating History of gastric ulcer Iron deficiency anemia RLQ abdominal pain Surgical History Surgical History History of x2 History of gynecologic surgery 08/10/2023 - Hscope D&C History of tubal ligation Family History Family History Other Diabetes mellitus Hypertension Social History Social History (Updated 09/27/23 @ 06:42 by Bharathi Bajwa MD) Smoking packs per day: 1 Smoking cigarettes per day: 20.0 Years smoked: 10 Smoking pack-years: 10.00 Smoking status: Former smoker Tobacco type: cigarettes Smoking end date: 09/14/03 Alcohol intake: current Alcohol use details: 3 drinks monthly Substance use: never Substance use type: does not use Lack of Transportation: No Lack of Food: Never True Current Housing: I Have Housing Concerned About Future Housing: No Difficulty Paying Gas/Electric Bills: No Difficulty Paying for Meds: No Currently Unemployed: No Education: High School Diploma/GED Difficulty w/ Childcare or Family Care: No Living arrangements: with family Occupation/Education: occupation Gender identity (if verbalized by the patient): Female Sexual Orientation (if Verbalized by the Patient): Straight or Heterosexual Spiritual care concerns: No Anes - Eval Final PreProcedure Day of Procedure 09/27/23 06:39 Patient weight: overweight Heart: regular rate and rhythm Lungs: clear to auscultation Airway: Mallampati scale class II and special considerations poor dentition Neurological: alert and oriented Last oral intake: >/= 8 hours ASA classification: II Emergent: no Anesthetic plan: proceed Anesthesia type and monitoring: general ETT and standard monitoring Results Review: All pre-operative results and documents have been reviewed as part of the pre- operative evaluation. Informed Consent: The patient's anesthetic plan and its attendant risks and benefits were discussed with the patient/family/POA. Questions were solicited and answers provided to the satisfaction of the patient/family/POA.
[2023-09-27] MEDS: LACTATED RINGERS 1,000 ML 30 ML IV CONT ×2 (07:00→10:46)
[2023-09-27] MEDS: ACETAMINOPHEN 500 MG TABLET 1000 MG PO ×3 (07:00→19:41)
[2023-09-27] MEDS: KETOROLAC 15 MG/ML VIAL (*BKC) IV PUSH (07:00)
--- NOTE | 2023-09-27 07:10 | WPDHPUPDATE1 ---
History and Physical Update Update Date/Time: 09/27/23 07:10 History and Physical has been reviewed, including an updated exam of the patient. There are NO changes in the patient's condition. Risks, benefits, and alternatives have been discussed and questions answered. Patient agrees to proceed with total abdominal hysterectomy with bilateral salpingectomy, possible cystoscopy, possible supracervical hysterectomy.
[2023-09-27] MEDS: ceFAZolin 2 GM/D5W 50 ML 2 GM/50 ML BAG IVPB (07:39)
[2023-09-27] MEDS: metroNIDAZOLE 500 MG/ISO 100ML 500 MG/100 ML BAG 100 MG IVPB (07:43)
[2023-09-27] MEDS: METHYLENE BLUE 0.5% INJ 10 ML AMPULE IRRIGATION (09:04)
--- NOTE | 2023-09-27 10:45 | W.PM.PROC2 ---
Procedure Note - Detailed Date of Procedure 09/27/23 Pre-op Diagnosis uterine fibroids AUB pelvic pain Post-op Diagnosis Same (dense bladder adhesions) Procedure Performed Abdominal supracervical hysterectomy, bilateral salpingectomy, and cystoscopy Surgeon Kaylie Garvin MD Mechanical Inspector William Anesthesia General Findings Uterus sounded to 14cm, normal appearing cervix, normal bilateral ovaries, history of tubal ligation. Dense adhesions from the mid uterus down to the bladder. Bladder back filled with methylene blue, unable to free the dense adhesions off the cervix and I decided to proceed with supracervical hysterectomy. Cystoscopy revealed a normal bladder without masses or defects; bilateral ureteral efflux noted. Good hemostasis at end of case. Uterus and tubal stumps weighed 537g. Description of Procedure Bienvenido was counseled on all risks and benefits in detail. She was taken to the operating room where was placed under general endotracheal anesthesia without issue. She was then prepped and draped in the normal sterile fashion in the dorsal lithotomy position. She received 2g Ancef and 500mg Metronidazole and a time out was performed. A Pfannenstiel incision was made in the skin and carried down to the underlying fascia. The fascia was nicked on either side of the midline and the fascial incision was extended laterally and superiorly using curved Peter scissors. The fascia was then elevated using Niharika clamps and the underlying rectus muscles were dissected off the fascia, superiorly and inferiorly. The rectus muscles were then in the midline and the peritoneum was entered using a Brit clamp. The large fibroid uterus was palpated, along with dense adhesions from the mid uterus to the bladder. With the bowel packed with moist laps, and a ribbon protecting the covered bowel; my hysterectomy was started on the right side. The tubal stump was removed and the uterine ovarian artery was then serially clamped, coagulated, and transected using the LigaSure device with good hemostasis. The broad ligament and round ligament were clamped, coagulated, and transected using the LigaSure device. The same procedure was performed on the left side to help release the uterus. The uterus was then able to be exteriorized and grasped with a double tenaculum. The broad ligament was further dissected using a right angle clamp and bovie cautery, attempting to release the bladder. Some of the dense adhesions from the mid uterus were slowly and carefully taken down using bovie cautery and tension/counter traction. The uterine arteries were slowly skeletonized. The bladder flap was not fully developed and dense adhesions made it hard to differentiated it from the uterus. The bladder was back filled with 120cc of methylene blue/normal saline solution. I was able to slowly and carefully removed the remaining portion of the dense scar tissue to the mid uterus, but was unable to fully develop the bladder flap due to the dense adhesions from her prior sections. I decided to proceed with supracervical hysterectomy. The right uterine artery was clamped using Sumit straight and slightly curved clamps. The uterine artery was then transected using curved Peter scissors. The uterine artery was suture ligated using 0-Vicryl stitches and good hemostasis was noted. The same procedure was performed on the left side without issue. The uterus was then amputated from the cervix using a scalpel. The cervical stump was grasped with a Niharika clamp. The cervix was made hemostatic with bovie cautery and then suture ligated using 0-Vicryl. Good hemostasis was noted at all the pedicles. The pelvis was irrigated with warm saline and suctioned free. My attention was turned down below; the Montes catheter was then removed. The cystoscope was placed within the bladder, which filled without difficulty. Bilateral ureteral efflux was noted. The bladder was examined and no defects or abnormalities were v
[2023-09-27] MEDS: fentaNYL CITRATE INJ (*CRX) 100 MCG/2 ML VIAL 25 MCG IV PUSH ×7 (11:08→11:31)
[2023-09-27] MEDS: HYDROmorphone HCL INJ (*CRX) 1 MG/ML SYR 0.5 MG IV PUSH ×6 (11:36→21:58)
--- NOTE | 2023-09-27 12:46 | PC.NURSE ---
This patient, Bienvenido Villarreal, was received from PACU on 09/27/23 at 1220. Patient/family oriented to unit policies and routines
[2023-09-27] MEDS: DEXTROSE 5%/LACTATED RINGERS 1,000 ML 125 ML IV CONT ×2 (12:54→19:59)
[2023-09-27] MEDS: KETOROLAC 30 MG/ML VIAL (*BKC) 15 MG IV PUSH (14:05)
[2023-09-27] MEDS: oxyCODONE HCL (*CRX) 5 MG TAB IR PO (15:02)
[2023-09-27] MEDS: ONDANSETRON INJ 4 MG/2 ML VIAL IV PUSH (17:29)
[2023-09-27] MEDS: DOCUSATE SODIUM 100 MG CAPSULE PO (18:02)
[2023-09-27] MEDS: oxyCODONE HCL (*CRX) 5 MG TAB IR 10 MG PO (18:03)
[2023-09-27] MEDS: METOCLOPRAMIDE HCL INJ 10 MG/2 ML VIAL IV PUSH (20:38)
[2023-09-28] MEDS: IBUPROFEN 600 MG TABLET PO ×4 (02:00→20:25)
[2023-09-28] MEDS: ACETAMINOPHEN 500 MG TABLET 1000 MG PO ×4 (02:01→20:25)
[2023-09-28 04:00] VITALS: BP 110/63; PULSE 86; RESP 16; TEMP 36.4; O2SAT 98
[2023-09-28] MEDS: oxyCODONE HCL (*CRX) 5 MG TAB IR 10 MG PO ×3 (04:14→07:45)
[2023-09-28] MEDS: DEXTROSE 5%/LACTATED RINGERS 1,000 ML 125 ML IV CONT (04:19)
[2023-09-28 05:35] LABS: Basophils Percent Auto 0.3 % (0.2-1.2); Eosinophils Percent Auto 0.3 % (0-4.4); Hematocrit 37.1 % (37.0-47.0); Hemoglobin 12.5 g/dL (12.0-15.0); Immature Granulocyte Absolute 0.05 K/mm3 (0.00-0.031); Immature Granulocyte Percent A 0.4 % (0-0.5); Lymphocytes Percent Auto 13.5 % (18.3-44.2); Mean Corpuscular HGB Conc 33.7 g/dl (32-36); Mean Corpuscular Volume 89.2 fl (80-100); Mean Platelet Volume 10.3 fl (7.4-10.4); Monocytes Percent Auto 8.8 % (2.6-8.5); Neutrophils Absolute Auto 9.1 K/mm3 (1.3-6.7); Neutrophils Percent Auto 76.7 % (45.5-73.1); Platelet Count Result 253 k/mm3 (150-375); Red Blood Count 4.16 M/mm3 (4.2-5.4); Red Cell Distribution Width 12.9 % (11.5-14.5); White Blood Count 11.8 K/mm3 (4.5-10.0)
[2023-09-28 05:51] LABS: Anion Gap 4 mmol/L (8-16); Blood Urea Nitrogen 3 mg/dL (7-17); Calcium 8.2 mg/dL (8.4-10.2); Carbon Dioxide 23 mmol/L (22-30); Chloride 108 mmol/L (98-107); Estimated CRCL calculation 115 ml/min; Estimated Glomerular Filt Rate > 60; Glucose 111 mg/dL (65-110); Potassium 3.6 mmol/L (3.4-5.0); Sodium 135 mmol/L (137-145)
--- NOTE | 2023-09-28 06:40 | PM.GYNPNOP ---
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 and plan (1) S/P abdominal supracervical subtotal hysterectomy: Code(s): Z90.711 - Acquired absence of uterus with remaining cervical stump Status: Acute Plan - galvez to be removed; awaiting spontaneous void-- encouraged to get up 4 hours after removal, if no spontaneous void by 6 hours, plan for bladder scan and if large volume, will replace catheter - regular diet, po hydration encouraged - ambulation encouraged - continue po pain meds Postoperative Procedures: Procedures Operation Date: 09/27/23 07:30 Actual Procedure Side Surgeon p Supracervical Abdominal Hysterectomy With Bilateral Salpingectomy, Cystoscopy Kaylie Garvin MD Postoperative day: 1 Postoperative status: doing well Postoperative plan: routine post-op care Time Spent With Patient Time: Total time spent is greater than 50% in coordination of care (as documented) at patient's floor/unit and/or counseling patient: Time with patient: less than 15 minutes AUTO POLISHER- PN:Subj Post-Op Subjective Date/time seen: 09/28/23 07:15 Interval history: POD#1 Bienvenido reports doing well, had worse pain overnight; got Dilaudid. Her pain is better controlled with PO meds. She has tolerated snacks/clear diet. Had emesis x1 after the IV pain meds. She denies any vaginal bleeding. Galvez is still in place this AM. She has passed flatus. She has not ambulated yet. Having headaches; but has a h/o of them-- likely due to lack of caffeine. Review of Systems Review of Systems: All systems reviewed & are unremarkable except as noted in HPI and below (HPI) Constitutional: Constitutional: Denies chills, Denies fever(s) and Reports headache(s) Eyes: Eyes: Denies change in vision ENT: Denies dizziness and Denies headache(s) Cardiovascular: Cardiovascular: Denies chest pain and Denies rapid heart rate Respiratory: Respiratory: Denies cough Genitourinary: Genitourinary: Denies abnormal vaginal bleeding Neurologic: Denies dizziness and Denies headache(s) Exam Const: General: cooperative, healthy appearing, comfortable and no acute distress Orientation/consciousness: patient oriented x3 Resp: Effort & Inspection: normal respiratory effort Auscultation: clear to auscultation bilaterally Cardio: Rate: regular rate GI: Inspection: normal to inspection and incision (covered with clean dressing) GI Palp: Yes abdominal tenderness (appropriate) and Yes Soft to palpation Auscultation: normal bowel sounds : Other: normal bleeding on pad Skin: General skin exam: normal color Neuro: General: patient oriented x3 Psych: Appearance: grossly normal Affect: normal affect Attitude: cooperative AUTO POLISHER - PN: Obj Data Vital Signs Vital Signs: Vital Signs - 24 hr 09/27/23 07:00 09/27/23 07:30 09/27/23 10:46 Temperature 96.7 F L 97.9 F Pulse Rate 120 H 100 85 Respiratory Rate 18 16 Blood Pressure 132/85 126/82 Pulse Oximetry 98 98 Oxygen Delivery Room Air Simple Face Mask Oxygen Flow Rate 8 09/27/23 11:00 09/27/23 11:15 09/27/23 11:30 Temperature Pulse Rate 98 98 96 Respiratory Rate 16 12 14 Blood Pressure 142/90 H 126/89 125/82 Pulse Oximetry 100 94 97 Oxygen Delivery Simple Face Mask Room Air Room Air Oxygen Flow Rate 8 09/27/23 11:45 09/27/23 11:57 09/27/23 12:30 Temperature 98.0 F Pulse Rate 96 96 95 Respiratory Rate 12 12 16 Blood Pressure 116/77 115/75 128/73 Pulse Oximetry 98 99 100 Oxygen Delivery Nasal Cannula Nasal Cannula Oxygen Flow Rate 2 2 09/27/23 16:00 Temperature 98.5 F Pulse Rate 114 H Respiratory Rate 18 Blood Pressure 131/80 Pulse Oximetry 98 Oxygen Delivery Oxygen Flow Rate Intake/Output Intake/Output: Intake & Output 09/24/23 09/25/23 09/26/23 09/27/23 23:59 23:59 23:59 23:59 Intake Total 2190 Output Total 300 Balance 1890 Meds/Results Medications: Active Medications Generic Name Dose Route Start Last Admin Trade Name Freq PRN Re
[2023-09-28] MEDS: DOCUSATE SODIUM 100 MG CAPSULE PO ×2 (07:44→16:54)
[2023-09-28] MEDS: SIMETHICONE 80 MG TAB.CHEW PO ×4 (07:46→20:25)
[2023-09-28 08:25] VITALS: BP 126/77; PULSE 91; RESP 16; TEMP 36.8; O2SAT 98
[2023-09-28] MEDS: ONDANSETRON INJ 4 MG/2 ML VIAL IV PUSH ×3 (09:21→23:07)
--- NOTE | 2023-09-28 11:07 | P.PNAN_ITS ---
Anes - Prog Note Post-Op Date/Time: 09/28/23 11:07 Cardiovascular status: normal Respiratory status: normal Airway patency: baseline Mental status: baseline Post-Op hydration status: normal Vital Signs: Last Vital Signs Temp 36.8 C 09/28/23 08:25 Pulse 91 09/28/23 08:25 Resp 16 09/28/23 08:25 BP 126/77 09/28/23 08:25 Pulse Ox 98 09/28/23 08:25 O2 Del Method Nasal Cannula 09/27/23 11:57 O2 Flow Rate 2 09/27/23 11:57 Pain Score (VAS): 10/30 I/O: Intake & Output 09/27/23 09/28/23 09/28/23 23:59 07:59 15:59 Intake Total 1340 1740 250 Output Total 1650 1050 100 Balance -310 690 150 Laboratory Tests 09/28/23 04:02 09/28/23 04:02 09/28/23 04:02 WBC 11.8 H RBC 4.16 L Hgb 12.5 Hct 37.1 MCV 89.2 MCH 30.0 MCHC 33.7 RDW 12.9 Plt Count 253 MPV 10.3 Immature Gran % (Auto) 0.4 Neut % (Auto) 76.7 H Lymph % (Auto) 13.5 L [place] % (Auto) 8.8 H Eos % (Auto) 0.3 Baso % (Auto) 0.3 Lymph # (Auto) 1.60 [place] # (Auto) 1.0 H Eos # (Auto) 0.0 Baso # (Auto) 0.0 Abs Immat Gran (auto) 0.05 H Absolute Neuts (auto) 9.1 H Absolute Nucleated RBC 0.0 Nucleated RBC % 0.0 Sodium 135 L Potassium 3.6 Chloride 108 H Carbon Dioxide 23 Anion Gap 4 L BUN 3 L Creatinine 0.50 L Estim Creat Clear Calc 115 Estimated GFR > 60 Glucose 111 H Calcium 8.2 L Post-procedural complaints: nausea (resolved) and vomiting (resolved) Patient Feedback: Patient satisfied with anesthetic care.
[2023-09-28] MEDS: oxyCODONE HCL (*CRX) 5 MG TAB IR PO ×3 (12:37→23:07)
[2023-09-28 16:50] VITALS: BP 135/75; PULSE 83; RESP 18; TEMP 36.6; O2SAT 97
[2023-09-28 20:30] VITALS: BP 132/69; PULSE 86; RESP 14; TEMP 37.1; O2SAT 98
[2023-09-29] MEDS: ACETAMINOPHEN 500 MG TABLET 1000 MG PO ×2 (02:34→09:03)
[2023-09-29] MEDS: IBUPROFEN 600 MG TABLET PO ×2 (02:34→09:03)
--- NOTE | 2023-09-29 07:09 | PM.GYNPNOP ---
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 (1) S/P abdominal supracervical subtotal hysterectomy: Code(s): Z90.711 - Acquired absence of uterus with remaining cervical stump Status: Acute Postoperative Procedures: Procedures Operation Date: 09/27/23 07:30 Actual Procedure Side Surgeon p Supracervical Abdominal Hysterectomy With Bilateral Salpingectomy, Cystoscopy Kaylie Garvin MD Postoperative day: 2 Postoperative status: doing well Postoperative plan: routine post-op care and discharge Time Spent With Patient Time: Total time spent is greater than 50% in coordination of care (as documented) at patient's floor/unit and/or counseling patient: Time with patient: less than 15 minutes POLARITY TESTER- PN:Subj Post-Op Subjective Date/time seen: 09/29/23 07:09 Interval history: POD#2 Bienvenido reports doing well; had a bad headache overnight; which caused nausea/vomiting. Her pain is controlled with PO pain meds. She has tolerated regular diet. She denies any vaginal bleeding. She reports she has been voiding, passing flatus, and ambulating w/o issue. Review of Systems Review of Systems: All systems reviewed & are unremarkable except as noted in HPI and below (HPI) Constitutional: Constitutional: Denies chills, Denies fever(s) and Denies headache(s) Eyes: Eyes: Denies change in vision ENT: Denies dizziness and Denies headache(s) Cardiovascular: Cardiovascular: Denies chest pain and Denies rapid heart rate Respiratory: Respiratory: Denies cough Genitourinary: Genitourinary: Denies abnormal vaginal bleeding Neurologic: Denies dizziness and Denies headache(s) Exam Const: General: cooperative, healthy appearing, comfortable and no acute distress Orientation/consciousness: patient oriented x3 Resp: Effort & Inspection: normal respiratory effort Auscultation: clear to auscultation bilaterally Cardio: Rate: regular rate GI: Inspection: normal to inspection and incision (covered with clean dressing) GI Palp: Yes abdominal tenderness (appropriate) and Yes Soft to palpation Auscultation: normal bowel sounds : Other: no bleeding on pad Skin: General skin exam: normal color Neuro: General: patient oriented x3 Extrem: Other: ambulating without issue Psych: Appearance: grossly normal Affect: normal affect Attitude: cooperative POLARITY TESTER - PN: Obj Data Vital Signs Vital Signs: Vital Signs - 24 hr 09/27/23 23:45 09/28/23 04:00 09/28/23 08:25 Temperature 98.3 F 97.6 F 98.3 F Pulse Rate 93 86 91 Respiratory Rate 16 16 16 Blood Pressure 116/66 110/63 126/77 Pulse Oximetry 98 98 98 09/28/23 16:50 Temperature 97.8 F Pulse Rate 83 Respiratory Rate 18 Blood Pressure 135/75 Pulse Oximetry 97 Intake/Output Intake/Output: Intake & Output 09/25/23 09/26/23 09/27/23 09/28/23 23:59 23:59 23:59 23:59 Intake Total 3290 2730 Output Total 1800 2050 Balance 1490 680 Meds/Results Medications: Active Medications Generic Name Dose Route Start Last Admin Trade Name Freq PRN Reason Stop Dose Admin Acetaminophen 1,000 mg 09/27/23 12:00 09/28/23 14:07 Acetaminophen 500 Mg Tablet PO 1,000 mg Q6H ASHOK Administration Docusate Sodium 100 mg 09/27/23 17:00 09/28/23 16:54 Docusate Sodium 100 Mg Capsule PO 100 mg BID ASHOK Administration Hydromorphone HCl 0.5 mg 09/27/23 11:58 09/27/23 21:58 Hydromorphone Hcl Inj (*Crx) 1 Mg/Ml Syr IV PUSH 0.5 mg Q2H PRN Administration Breakthrough Pain Ibuprofen 600 mg 09/28/23 02:00 09/28/23 14:07 Ibuprofen 600 Mg Tablet PO 600 mg Q6H ASHOK Administration Metoclopramide HCl 10 mg 09/27/23 11:58 09/27/23 20:38 Metoclopramide Hcl Inj 10 Mg/2 Ml Vial IV PUSH 10 mg Q6H PRN Administration Nausea Naloxone HCl 0.1 mg 09/27/23 11:58 Naloxone Hcl 0.4 Mg/Ml Vial IV PUSH Q2M PRN Respiratory rate less than 10 Ondansetron HCl 4 mg 09/27/23 11:58 09/28/23 17:37 Ondansetron Inj 4
[2023-09-29] MEDS: ONDANSETRON INJ 4 MG/2 ML VIAL IV PUSH (07:39)
[2023-09-29] MEDS: FAMOTIDINE 20 MG TABLET PO (07:40)
[2023-09-29 07:47] VITALS: BP 134/86; PULSE 86; TEMP 36.3; O2SAT 98
--- NOTE | 2023-09-29 07:58 | PM.DS ---
DS: Admitting Diagnosis Discharge Date 09/29/23 Admitting Diagnosis Fibroid uterus Pelvic pain AUB DS: Discharge Diagnosis Discharge Diagnosis (1) S/P abdominal supracervical subtotal hysterectomy: Code(s): Z90.711 - Acquired absence of uterus with remaining cervical stump Status: Acute DS: Summary Hospital Course Hospital Course: Bienvenido was admitted after scheduled abdominal hysterectomy. She underwent surgery; abdominal supracervical hysterectomy with bilateral salpingectomy and cystoscopy (please refer to op note for further details). Her post-op course was uncomplicated. Her labs and vitals were stable. By POD #2, her pain was controlled, she was ambulating, tolerating regular diet, voiding and passing flatus. She was having headaches, but was sent home on medication in the event that she has another at home as she desired to be discharged home and was meeting all post-op milestones. Status at Discharge Functional status at discharge: independent ambulation Overall status at discharge: patient is progressing back to baseline Time Spent with Patient Time attestation: Total time spent providing and/or coordinating discharge services: Exam Const: General: cooperative, healthy appearing, comfortable and no acute distress Orientation/consciousness: patient oriented x3 Resp: Effort & Inspection: normal respiratory effort Auscultation: clear to auscultation bilaterally Cardio: Rate: regular rate GI: Inspection: normal to inspection and incision (covered with clean dressing) GI Palp: Yes abdominal tenderness (appropriate) and Yes Soft to palpation Auscultation: normal bowel sounds : Other: no bleeding on pad Skin: General skin exam: normal color Neuro: General: patient oriented x3 Extrem: General: normal to inspection Psych: Appearance: grossly normal Affect: normal affect Attitude: cooperative DS: Data Data Completed and Pending Completed studies during hospitalization: Pending at discharge 09/27/23 09:43 Surgical [PTH] Routine Discharge Plan Discharge Attending physician on discharge: Kaylie Garvin Discharging Clinician: Kaylie Garvin Anticipated Discharge Date/Time: 09/29/23 10:00 Patient Disposition: Home, Self-Care Activity: may shower and pelvic rest Diet: regular Discharge Instructions: Remove dressing by 10/04/23. No heavy lifting over 15lbs; pelvic rest (nothing in the vagina); showers only. Patient Instructions: Hysterectomy (DC) Stand Alone Forms: General Discharge Information Follow-up/Referrals: Kaylie Garvin MD [Physician] - 2 Weeks Discharge Medications: New acetaminophen 500 mg Tablet 1,000 mg PO Q6H Qty: 60 0RF docusate sodium 100 mg Capsule 100 mg PO BID Qty: 60 0RF ibuprofen 600 mg Tablet 600 mg PO Q6H Qty: 40 0RF oxycodone 5 mg Tablet See Rx Instructions .ROUTE .COMPLEX PRN (Reason: severe pain) Qty: 24 0RF Rx Instructions: take 5mg orally q4h or 10mg orally q6h as needed for severe pain; do no exceed 8 tablets in 24 hours ondansetron 4 mg tablet,disintegrating 4 mg PO Q6H PRN (Reason: nausea and vomiting) Qty: 30 0RF famotidine [Pepcid] 20 mg tablet 20 mg PO BID Qty: 60 1RF [id number] [Fioricet] 50-300-40 mg capsule 1 cap PO Q6H PRN (Reason: pain) Qty: 10 0RF Continued ferrous sulfate 325 mg (65 mg iron) tablet 325 mg PO DAILY cetirizine 5 mg Tablet 5 mg PO DAILY Date of admission: 09/27/23 11:58 Primary Care Provider: Flakito Caro Admitting Provider: Kaylie Garvin Attending physician on admission: Kaylie Garvin Condition: Stable
[2023-09-29] MEDS: SIMETHICONE 80 MG TAB.CHEW PO (09:02)
[2023-09-29] MEDS: DOCUSATE SODIUM 100 MG CAPSULE PO (09:03)
--- NOTE | 2023-09-29 09:51 | PC.NURSE ---
On 09/29/23, the student, Zane Llanos, provided care and completed [facility] documentation on this patient. I have reviewed the student's documentation and agree with the findings.
== END 2023-09-29 11:30 | disposition home or self-care (01) | DRG 743 ==
LOC: ANHOB2 12:45
PROVIDERS: Admitting Provider Obstetrics & Gynecology; PCP Emergency Medicine; Visit Provider Obstetrics & Gynecology
PROC: 0UT94ZZ Resection of Uterus, Percutaneous Endoscopic Approach (ICD-10-PCS; principal; 2023-09-27 07:30)
DX: D25.9 Leiomyoma of uterus, unspecified (principal); N73.6 Female pelvic peritoneal adhesions (postinfective); N92.0 Excessive and frequent menstruation with regular cycle; N32.89 Other specified disorders of bladder; D50.9 Iron deficiency anemia, unspecified; F17.210 Nicotine dependence, cigarettes, uncomplicated
CPT/HCPCS: 36415; 80048; 85025; 88307; A9270; J0690; J1100; J1170; J1596; J1836; J1885; J2250; J2405; J2704; J2710; J2765; J3010; J7030; J7120; J7121; Q9968

== ENCOUNTER → 2023-10-14 14:54 | Outpatient (CLI) | payer OTHER, SELFPAY ==
--- NOTE | ~2023-10-14 | MM_ITS ---
EXAMINATION: MM screening [facility] BI w viktor HISTORY: Screening TECHNIQUE: Craniocaudal and mediolateral oblique 3-D tomosynthesis images were obtained and synthetic 2-D images were generated. CAD analysis was submitted and interpreted. COMPARISON: Comparison to multiple prior studies sequentially, with oldest reviewed study dated 10/2018. BREAST PARENCHYMAL COMPOSITION: The breasts are heterogeneously dense, which may obscure small masses . FINDINGS: There is no evidence of suspicious mass, calcification, or architectural distortion to sugg est malignancy in either breast. There has been no suspicious interval change. IMPRESSION: 1. No mammographic evidence of malignancy. 2. Recommend routine screening mammography in one year. BI-RADS Category 1: Negative Reviewed, dictated and finalized at location A. 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
== END ==
PROVIDERS: PCP Emergency Medicine; Visit Provider Obstetrics & Gynecology
DX: Z12.31 Encounter for screening mammogram for malignant neoplasm of breast (principal)
CPT/HCPCS: 77063; 77067

== ENCOUNTER 2024-10-16 15:26 | Outpatient (CLI) | payer OTHER, SELFPAY ==
--- NOTE | ~2024-10-16 | MM_ITS ---
EXAMINATION: MM screening [facility] BI w viktor HISTORY: Screening mammogram TECHNIQUE: Craniocaudal and mediolateral oblique 3-D tomosynthesis images were obtained and synthetic 2-D images were generated. CAD analysis was submitted and interpreted. COMPARISON: 10/14/2023, 05/26/2022, 10/09/2020 BREAST PARENCHYMAL COMPOSITION:Dense: The breasts are heterogeneously dense, which may obscure small masses. FINDINGS: Suspected 7 mm obscured mass in the relatively central, slightly inner left breast. Stable parenchymal appearance of the right breast. No suspicious mass or calcifications. IMPRESSION: Suspect a 7 mm left breast mass, as above. Spot compression views and ultrasound are recommended for further evaluation. BI-RADS Category 0: Incomplete: Needs additional imaging evaluation. Reviewed, dictated and finalized at [facility]. EWAY OPERATOR IMPRESSION: Suspect a 7 mm left breast mass, as above. Spot compression views and ultrasoun d are recommended for further evaluation. BI-RADS Category 0: Incomplete: Needs additional imaging evaluation.
== END 2024-10-16 15:27 | disposition home or self-care (01) ==
LOC: MICIMG 15:27
PROVIDERS: PCP Emergency Medicine; Visit Provider Emergency Medicine
DX: Z12.31 Encounter for screening mammogram for malignant neoplasm of breast (principal); R92.8 Other abnormal and inconclusive findings on diagnostic imaging of breast
CPT/HCPCS: 77063; 77067

== ENCOUNTER 2024-11-14 07:48 | Outpatient (CLI) | payer OTHER, SELFPAY ==
--- NOTE | ~2024-11-14 | MMUS_ITS ---
EXAMINATION: MM diagnostic [facility] LT w viktor, US breast LT limited HISTORY: Suspected 7 mm obscured mass in the central slightly inner left breast seen on screening [facility] mography dated 10/16/2024. Patient presents today for diagnostic evaluation. TECHNIQUE: Additional 3-D tomosynthesis images of the left breast were performed and synthetic 2-D im ages were generated. CAD analysis was submitted and interpreted. High resolution left breast breast ultrasound was performed. COMPARISON: Examination was compared with multiple prior studies, performed most recently on and dating back to 10/09/2020. BREAST PARENCHYMAL COMPOSITION: Dense: The breasts are heterogeneously dense, which may obscure small masses. FINDINGS: MAMMOGRAPHIC FINDINGS: Multiple well-circumscribed areas are detected centrally and within the upper outer left breast which persist with spot compression, and for which dedicated left breast ultrasound will be performed. ULTRASOUND: At the 2:00 position of the left breast approximately 7 cm from the nipple is a well-circumscribed, a vascular focus of decreased echogenicity measuring 2.5 x 2.4 x 3.9 mm, with increased through transmi ssion, consistent with a simple cyst. At the 3:00 position of the left breast approximately 5 cm from the nipple are two well-circumscribed anechoic avascular foci. The first, deeper structure measures 8.0 x 5.6 x 10.0 mm and is without increased through transmissio n, secondary to its depth. The second, more superficial structure measures 5.8 x 5.9 x 9.2 mm, demonstrates increased through tr ansmission, and is consistent with a simple cyst for which no further follow-up is needed. Also at the 3:00 position of the left breast approximately 7 cm from the nipple is a well-circumscrib ed anechoic avascular structure with increased through transmission measuring 5.3 x 3.3 x 4.7 mm, con sistent with a simple cyst for which no further follow-up is needed. Sonographic evaluation of the remainder of the central slightly inner left breast demonstrates benign fibroglandular elements without a cystic or solid lesion of concern. IMPRESSION: No mammographic/tomographic or sonographic evidence to suggest the presence of malignancy. Resumption of yearly mammography is recommended. BI-RADS Category 2: Benign finding(s). Reviewed, dictated and finalized at location A. IMPRESSION: No mammographic/tomographic or sonographic evidence to suggest the presence of malignancy. Resumption of yearly mammography is recommended. BI-RADS Category 2: Benign finding(s).
== END 2024-11-14 07:49 | disposition home or self-care (01) ==
LOC: MICIMG 07:48
PROVIDERS: PCP Emergency Medicine; Visit Provider Emergency Medicine
DX: N63.22 Unspecified lump in the left breast, upper inner quadrant (principal); N63.25 Unspecified lump in the left breast, overlapping quadrants
CPT/HCPCS: 76642; 77061; 77065; G0279